=== PATIENT | male | born 1960 | race Caucasian/White ===

== ENCOUNTER 2016-08-31 22:48 | Emergency (ER) | payer OTHER | END 2016-09-01 01:05 | disposition home or self-care (01) | LOC: ER 22:48 | DX: Z02.89 Encounter for other administrative examinations (principal); S09.8XXA Other specified injuries of head, initial encounter; S01.01XA Laceration without foreign body of scalp, initial encounter; S01.81XA Laceration without foreign body of other part of head, initial encounter; W22.8XXA Striking against or struck by other objects, initial encounter; Y92.009 Unspecified place in unspecified non-institutional (private) residence as the place of occurrence of the external cause; F17.210 Nicotine dependence, cigarettes, uncomplicated | CPT/HCPCS: 70450; 70486 ==